=== PATIENT | female | born 1985 | race African-American/Black ===

== ENCOUNTER 2024-07-06 10:16 | Outpatient (CLI) | payer OTHER, SELFPAY ==
--- NOTE | ~2024-07-06 | CT_ITS ---
CLINICAL INDICATION: Left lower quadrant pain. COMPARISON: None. TECHNIQUE: Computed tomography (CT) of the abdomen and pelvis was performed without intravenous contr ast. The dose-length product was 847.16 mGy-cm. FINDINGS/OBSERVATIONS: Visualized lower thorax:Calcified granuloma within the left lung base. Remainder of the bilateral lung bases are clear. The heart is of normal size, without pericardial effusion. Liver: The liver is borderline enlarged measuring 19 cm in longitudinal dimension. The attenuation of the liver is otherwise unremarkable. Gallbladder and biliary system: The gallbladder is only minimally distended, and otherwise unremarkab le. No intrahepatic biliary ductal dilatation is identified. Pancreas: Evaluation of the pancreas is limited without intravenous contrast. Spleen: The spleen is of normal size and attenuation. Kidneys: The bilateral kidneys are unremarkable without renal calculi or hydronephrosis. Adrenal glands: The bilateral adrenal glands are unremarkable in their course and caliber. Gastrointestinal tract: No dilated loops of small or large bowel. Trace fecal stasis within the ascending colon. Appendix:The air-filled appendix is of normal caliber (axial series, image 140). Vasculature: The abdominal aorta is nonaneurysmal. The IVC is patent. Originating from the left gonadal vein, is a focus of decreased attenuation distorting the contour of the adjacent sigmoid colon, likely an ovarian cyst. The patient apparently underwent hysterectomy, u nknown oophorectomy. This focus along the left pelvic sidewall measures 4.3 x 3.8 x 3.8 cm (anterior to posterior x medial to lateral x cranial to caudal dimension) and demonstrates fluid attenuation. This focus demonstrates mass effect on the patient's bladder and is medial to the external iliac ace ry and vein. Lymph nodes: No morphologically suspicious or pathologically enlarged lymph nodes are identified with in the retroperitoneum or at the root of the mesentery. Pelvic structures:The uterus is surgically absent. The right ovary is unremarkable. The bladder is distended, and otherwise unremarkable. Body wall and musculoskeletal: No umbilical or inguinal hernias are present. No significant degenerative disease within the lower thoracic or lumbosacral spine. No lytic or blast ic lesions are identified. IMPRESSION: Findings within the left hemipelvis (as detailed above) which are most consistent with a left ovarian (likely) cyst measuring 4.3 cm in greatest dimension for which confirmation with ultrasound may be p erformed. Reviewed, dictated and finalized at location A. IMPRESSION: Findings within the left hemipelvis (as detailed above) which are most consiste nt with a left ovarian (likely) cyst measuring 4.3 cm in greatest dimension for which confirmation with ultrasound may be performed.
== END 2024-07-06 10:17 | disposition home or self-care (01) ==
PROVIDERS: PCP Nurse Practitioner Family; Visit Provider Nurse Practitioner Family
DX: R10.32 Left lower quadrant pain (principal)
CPT/HCPCS: 74176